=== PATIENT | male | born 1970 | race Caucasian/White ===

== ENCOUNTER → 2016-10-15 | Day surgery (SDC) | payer MEDICAID ==
[~2016-10-15] VITALS: Ht 170.2 cm; Wt 92.1 kg
[~2016-10-15] MED LIST: ANTIVERT GENERI25 MG PO; ASPIRIN EC81 MG PO; CIPRO 500MG TA500 MG PO; CIPRO500 MG PO; CIPROFLOXACIN500 MG PO; FLAGYL 500MG.500 MG PO; FLOMAX 0.4MG C0.4 MG PO; LORTAB 5/500 501 TAB PO; LORTAB 5/5001 TAB OR; NORCO 325 MG-51 TAB PO; PHENERGAN 25MG.25 M1 PO; PRAVASTATIN 20M20 MG PO; ZETIA10 MG PO; ZOFRAN ODT8 MG PO
[2016-10-15 15:06] VITALS: BP 106/80
--- NOTE | 2016-10-15 15:22 | Operative Note ---
Procedure/Operative Record Date of Procedure: 10/15/16 Referring physician: Dr. Lombardo Pre-op diagnosis: Carpal tunnel syndrome, RIGHT wrist Post-op diagnosis: Carpal tunnel syndrome, RIGHT wrist Procedure performed: Open carpal tunnel release, RIGHT wrist Surgeon: GENIE LEBRON MD Weapons Officer(s): [facility] Anesthesia: Biers block with IV sedation Indications: Patient is a 46-year-old male with RIGHT carpal tunnel syndrome with symptoms of at least 3-4 years. EMG results in the past confirmed carpal tunnel syndrome on the RIGHT side. Patient failed to respond adequately to conservative management. Therefore the carpal tunnel release surgery was necessary to relieve his symptoms, preserve the remaining fibers of the median nerve, improve function and decrease the pain, paresthesias and weakness and to prevent permanent nerve damage. Findings: The intraoperative findings showed the median nerve to be very tightly compressed and hyperemic. The flexor retinaculum was noted to be very thick and tight. There was no significant synovitis or space-occupying lesions within the carpal tunnel. Description of procedure: On the day of the surgery the patient was met in the preoperative area. Patient was positively identified and the operative site was marked and initialed by me. A physical examination was performed and the chart was updated. I again discussed the procedure, risks and benefits and alternatives with the patient. The complications discussed include but are not limited to- bleeding, injury to nerves, blood vessels and tendons, infection, wound dehiscence [wound coming apart], incomplete relief/continued pain, persistent numbness, palmar hypersensitivity, pillar pain, DVT/PE, complex regional pain syndrome(CRPS), worsening of nerve damage, failure of the condition to improve, incomplete return of function, bowstringing of tendons, weakness of internet retailer strength, recurrence, failure of the surgery to accomplish the desired goals, decreased use of the hand, loss of use of the arm, loss of the hand or arm, loss of life. Likely need for further surgery in the future has been discussed. I've indicated to the patient where the proposed incision would be made and also discussed the possibility of extending the incision if needed to accomplish an effective release. We have discussed how the goal of surgery is to protect the fibers which have remained healthy and hopefully reverse the symptoms of the fibers which are compromised but still recoverable. We have explained that, fibers that are permanently damaged will not recover. We have also discussed the anesthetic options which include local, regional and general. Patient expressed a preference for a regional Jordan's block. Patient asked appropriate questions and all have been answered by me. Patient wished to proceed with the surgery. Consent form was reviewed and signed. The patient was brought to the operating room and the ironing machine operator had already administered the appropriate anesthetic (Biers block and IV sedation). The tourniquet cuff was already inflated for the block. Please see nursing records for the total tourniquet time. The RIGHT upper extremity was prepped and draped in the usual sterile fashion. A preprocedure timeout was performed as per hospital policy. The skin incision was marked using the Mcgill's landmarks, just ulnar to the thenar crease. Mcgill's landmarks were utilized and a skin incision was made parallel and just ulnar to the thenar crease with a 15 blade. Blunt tissue dissection was carried through the subcutaneous tissue down to the palmar fascia. The palmar fascia was incised with the knife to reveal the transverse carpal ligament. The transverse carpal ligament was adequately exposed and then incised with the knife just enough to expose the median nerve. We then protected the median nerve with a freer elevator and extended the incision on the ulnar aspect of the nerve using the knife. We then completed the division of the transverse carpal ligament proximally using a pair of tenotomy scissors. The transverse carpal ligament was contiguous with the antebrachial fascia- the skin was lifted up with a retractor, and the antebrachial fascia visualized and incised. A complete release proximally was confirmed by easily obtaining side to side movement of the proximal carpal tunnel segments. Attention was then directed distally. Again, we incised the distal aspect of the transverse carpal ligament using the tenotomy scissors. Fat demarcating the end of the carpal tunnel was identified and we ensured that the motor branch was not endangered by any anatomic variation. We also confirmed that we had free side to side movement of the entire transverse carpal tunnel ligament segments. Inspection of the carpal tunnel contents showed hyperemic changes in the nerve. There was no synovitis or no space-occupying lesion within the transverse carpal canal. The tourniquet was then deflated and hemostasis was obtained with the bipolar diathermy. We then irrigated the wound with normal saline and the skin was closed with a running 4-0 nylon suture. The skin and soft tissue around the incision were then infiltrated with 7mL of 0.5 percent Marcaine for postoperative pain relief. Sterile dressings and a compression bandage was applied. The tourniquet cuff was removed from the arm. The patient was then transferred onto the [facility] and transported to the postoperative recovery area in stable condition. The swab, instrument and needle counts were correct according to the scrub team at the end of the procedure. Patient tolerated the procedure well and there were no immediate complications. Patient was discharged to home with appropriate written instructions after a period of observation in the postoperative area. Follow-up in my office in 2-3 days time for change of dressings and then in 10-14 days time for removal of sutures. EBL (ml): 5 Implant: None Complications: None Specimens: None at 1116
== END ==
LOC: SDC 11:58
PROVIDERS: Orthopaedic Surgery
PROC: 01N50ZZ Release Median Nerve, Open Approach (ICD-10-PCS; principal; 2016-10-15 13:30)
DX: G56.01 Carpal tunnel syndrome, right upper limb (principal)